=== PATIENT | female | born 1960 | race Native Hawaiian/Other Pacific Islander ===

== ENCOUNTER → 2024-04-22 06:31 | Day surgery (SDC) | payer OTHER, SELFPAY | LOC: GI 06:31 | PROVIDERS: ATTENDING PHYSICIAN Internal Medicine Gastroenterology | DX: Z12.11 Encounter for screening for malignant neoplasm of colon (principal); D12.0 Benign neoplasm of cecum; D12.4 Benign neoplasm of descending colon; K64.8 Other hemorrhoids; K29.50 Unspecified chronic gastritis without bleeding; K31.89 Other diseases of stomach and duodenum; K31.7 Polyp of stomach and duodenum; R13.10 Dysphagia, unspecified; R12 Heartburn | CPT/HCPCS: 45385; 45381; 43239; 88305; 88342 ==

== ENCOUNTER → 2025-02-22 09:03 | Outpatient (REF) | payer BC, SELFPAY | LOC: HWRAD 09:03 | PROVIDERS: ATTENDING PHYSICIAN Physician Assistant; FAMILY PHYSICIAN Internal Medicine | DX: B18.1 Chronic viral hepatitis B without delta-agent (principal) | CPT/HCPCS: 76700 ==

== ENCOUNTER → 2025-10-29 14:27 | Outpatient (REF) | payer BC, SELFPAY | LOC: MRI 14:27 | PROVIDERS: ATTENDING PHYSICIAN Internal Medicine Gastroenterology; FAMILY PHYSICIAN Internal Medicine | DX: B18.1 Chronic viral hepatitis B without delta-agent (principal); K76.0 Fatty (change of) liver, not elsewhere classified | CPT/HCPCS: 74183; 76391; A9575 ==